=== PATIENT | male | born 1985 | race Caucasian/White ===

== ENCOUNTER 2017-05-05 11:31 | Emergency (ER) | payer OTHER ==
[~2017-05-05] VITALS: Ht 175.3 cm; Wt 77.1 kg
[2017-05-05 14:45] VITALS: BP 132/71
[2017-05-05] MEDS ORDERED: KETOROLAC TROMETH 60MG/2ML VIAL IM ONE ×2 (15:15)
== END 2017-05-05 15:59 | disposition home or self-care (01) ==
LOC: ER 11:31
DX: M54.31 Sciatica, right side (principal); M79.1 Myalgia
CPT/HCPCS: 96372; 99283; J1885